=== PATIENT | male | born 1940 | race Caucasian/White ===

== ENCOUNTER 2016-08-11 09:06 | Emergency (ER) | payer MEDICARE ==
--- NOTE | 2016-08-11 09:33 | Emergency Department Record ---
History of Present Illness - General Chief Complaint: Dizziness Stated Complaint: DIZZY Time Seen by Provider: 08/11/16 09:11 Source: Patient Mode of Arrival: Ambulatory Limitations: No limitations - History of Present Illness Initial Comments: 76 yo male woke up at 8:30am. About 15 minutes later he went into his office. He noted he was dizzy and felt weakness in the RUE. He noted that it was different/difficult to close the bedroom door. He felt the arm was mildly tingly as well. No changes in his speech, vision. He felt dizzy and off balance. No weakness or perceived symptoms in his right leg. He feels like the symptoms have resolved at this time. He has a prior stroke in 2011 with left sided symptoms. Upon arrival he also noted a vague discomfort of chest pain as well. PCP [facility] in [place]. About 5 years ago while sitting in a restaurant he developed about 45 minutes of left arm weakness that resolved. He did not seek medical attention then. The symptoms today lasted about 30 minutes. MD Complaint: Dizziness, Other (right sided weakness, altered sensation) Onset/Timin -: Minutes(s) Timing: Sudden onset Description: Difficulty walking, Lightheadedness, Off-balance History of Same: Yes History of Trauma: No Severity: Mild Improves With: Nothing - [place] Coma Scale Eye Response: (4) Open spontaneously Motor Response: (6) Obeys commands Verbal Response: (5) Oriented [place] Total: 15 - Related Data Home Medications Medication Instructions Recorded Confirmed Last Taken Acyclovir 200 mg PO BID 08/11/16 08/11/16 1 Day Ago Aspirin [Aspirin EC] 325 mg PO DAILY 08/11/16 08/11/16 1 Day Ago Carvedilol [Coreg] 12.5 mg PO DAILY 08/11/16 08/11/16 1 Day Ago Ergocalciferol (Vitamin D2) 50,000 unit PO WEEKLY 08/11/16 08/11/16 1 Day Ago [Vitamin D2] Losartan/Hydrochlorothiazide 1 each PO DAILY 08/11/16 08/11/16 1 Day Ago [Hyzaar 100-12.5 Tablet] Meloxicam [Mobic] 7.5 mg PO BID 08/11/16 08/11/16 1 Day Ago Omeprazole [Prilosec] 20 mg PO BID 08/11/16 08/11/16 1 Day Ago Pravastatin Sodium [Pravachol] 40 mg PO DAILY 08/11/16 08/11/16 1 Day Ago Timolol Maleate 0.5% 5Ml Btl 1 drop OP BID 08/11/16 08/11/16 1 Day Ago [Timoptic] Allergies Allergy/AdvReac Type Severity Reaction Status Date / Time No Known Drug Allergies Allergy Verified 08/11/16 09:22 Travel Screening - Travel/Exposure Within Last 30 Days Have you traveled within the last 30 days?: No - Travel/Exposure Within Last Year Have you traveled outside the [place] in the last year?: No - Additonal Travel Details Have you been exposed to anyone with a communicable illness?: No - Travel Symptoms Symptom Screening: None Review of Systems Constitutional: Denies: Chills, Fever, Malaise, Weakness Eyes: Denies: Eye discharge, Eye pain, Photophobia, Vision change ENT: Denies: Congestion, Ear pain, Throat pain Respiratory: Denies: Cough, Dyspnea, Hemoptysis, Stridor, Wheezes Cardiovascular: Reports: Chest pain. Denies: Arrhythmia, Dyspnea on exertion, Edema, Palpitations, Syncope Endocrine: Denies: Fatigue, Polydipsia, Polyuria Gastrointestinal: Denies: Abdominal pain, Diarrhea, Nausea, Vomiting Genitourinary: Denies: Dysuria, Frequency, Hematuria, Urgency Musculoskeletal: Denies: Arthralgia, Back pain, Joint swelling, Myalgia, Neck pain Skin: Denies: Bruising, Change in color, Rash Neurological: Reports: Numbness, Paresthesias, Tingling, Vertigo, Weakness, Other (the patient states the noted positives are resolved currently). Denies: Abnormal gait, Confusion, Headache, Seizure, Tremors Psychiatric: Denies: Anxiety Hematological/Lymphatic: Denies: Blood Clots, Easy bleeding, Easy bruising, Swollen glands Past Medical History - SOCIAL HISTORY Smoking Status: Former smoker Alcohol Use: Occassional Drug Use: None - RESPIRATORY Hx Sleep Apnea: Yes Hx of CPAP: Yes - CARDIOVASCULAR Hx Heart Attack: No Hx Hypertension: Yes - NEURO Hx CVA: Yes (thinks 2011) Hx TIA: Yes Comment:: many mini TIAs with CT scan - GI Hx Reflux: Yes - Hx Renal Disease: Yes (stage II) - ENDOCRINE Hx Diabetes: Yes Hx Thyroid Disease: No - MUSCULOSKELETAL Hx Arthritis: Yes - PSYCH Hx Psych Problems: No - HEMATOLOGY/ONCOLOGY Hx Hematology/Oncology Disorders: No Family Medical History Any Significant Family History?: Yes Physical Exam - General General Appearance: Alert, Oriented x3, Cooperative, No acute distress Limitations: No limitations - Head Head exam: Atraumatic, Normocephalic, Normal inspection - Eye Eye exam: Normal appearance, PERRL. negative: Conjunctival injection, Periorbital swelling, Scleral icterus - ENT ENT exam: Normal exam Ear exam: Normal external inspection Nasal Exam: Normal inspection Mouth exam: Normal external inspection Teeth exam: Normal inspection Throat exam: Normal inspection - Neck Neck exam: Normal inspection, Full ROM. negative: Tenderness - Respiratory Respiratory exam: Normal lung sounds bilaterally. negative: Respiratory distress - Cardiovascular Cardiovascular Exam: Regular rate, Normal rhythm, Normal heart sounds Peripheral Pulses: 2+: Radial (R), Radial (L), Dorsalis Pedis (R), Dorsalis Pedis (L) - GI/Abdominal GI/Abdominal exam: Soft - Rectal Rectal exam: Deferred - exam: Deferred - Extremities Extremities exam: Normal inspection, Full ROM, Normal capillary refill. negative: Pedal edema, Tenderness - Back Back exam: Reports: Normal inspection, Full ROM. Denies: Muscle spasm, Rash noted, Tenderness - Neurological Neurological exam: Alert, CN II-XII intact, Normal gait, Oriented X3, Reflexes normal, Other (No PND, Normal LINDA, Normal FTN, Normal [place]omberg response.). negative: Altered, Motor sensory deficit - Psychiatric Psychiatric exam: Normal affect, Normal mood. negative: Agitated, Anxious - Skin Skin exam: Dry, Intact, Normal color, Warm Stroke Assessment - NIH Stroke Scale 1a. Level of Consciousness: (0) Alert 1b. LOC Questions: (0) Answers Correctly 1c. LOC Commands: (0) Performs Tasks Correctly 2. Best Gaze: (0) Normal 3. Visual: (0) No Visual Loss 4. Facial Palsy: (0) Normal Symmetrical Movement 5a. Motor Arm Left: (0) No Drift 5b. Motor Arm Right: (0) No Drift 6a. Motor Leg Left: (0) No Drift 6b. Motor Leg Right: (0) No Drift 7. Limb Ataxia: (0) Absent 8. Sensory: (0) Normal 9. Best Language: (0) No Aphasia 10. Dysarthria: (0) Normal 11. Extinction/Inattention: (0) No Abnormality NIH Stoke Scale Total: 0 Course Vital Signs 08/11/16 09:08 Temperature 97.9 F Pulse Rate 63 Respiratory 18 Rate Blood Pressure 139/106 Pulse Ox 98 - Reevaluation(s) Reevaluation #1: The patient was seen on arrival His NIH stroke scale is 0 at this time EKG 09:19 NSR, rate 62, pvc's, axis normal, intervals normal, no acute ST changes, no changes from prior on 10/24/12. 08/11/16 09:32 Reevaluation #2: CR 1.3 HCT was read as no acute process. 08/11/16 09:57 Reevaluation #3: I explained the results to the patient. I recommended transfer for further evaluation of the symptoms at a stroke center. He is currently NIH of 0 and no subjective symptoms. He is currently declining transfer or admission. I thoroughly explained that resolved symptoms can be a warning of a stroke to follow. I explained that I can not recommend DC home. He understands the risks and my concerns. I explained the AMA process if he decides to leave. He understands the AMA request if he leaves. 08/11/16 10:07 Reevaluation #4: The patient ambulated throughout the ED and is asymptomatic The Troponin and CK were negative I again offered transfer or further observation, serial enzymes, stroke consult through [facility] He again has declined and will sign out AMA knowing he can call or return to the ER anytime 08/11/16 10:16 Medical Decision Making - Lab Data Result diagrams: 08/11/16 09:21 08/11/16 09:21 Disposition Disposition: Discharge Clinical Impression: Chest pain in adult TIA (transient ischemic attack) Qualifiers: Transient cerebral ischemia type: unspecified Qualified Code(s): G45.9 - Transient cerebral ischemic attack, unspecified Disposition: Against Medical Advice Condition: (2) Stable Instructions: Transient Ischemic Attack (ED), Dizziness (ED), Against Medical Advice (ED) Additional Instructions: Immediately return if you have any return of symptoms or call and ambulance Call your doctor first of the week for close follow up of you ER visit and your symptoms you are signing out AMA but may return any time for assistance or recheck Continue Aspirin 325mg daily Forms: Patient Portal Access Time of Disposition: 10:20
[2016-08-11 09:44] LABS: BASO % 0.7 % (0-6); EOS % 6.9 % (0-6); GRAN % 54.7 % (47-80); HEMOGLOBIN 15.6 gm/dl (14.0-18.0); LYMPH % 27.6 % (16-45); MEAN CELL VOLUME 90.7 fl (81-97); MEAN CORPUSCULAR HEMOGLOBIN 31.5 pg (27-33); MEAN CORPUSCULAR HGB CONC 34.7 g/dl (32-36); MEAN PLATELET VOLUME 11.1 fl (7.4-10.4); MONO % 10.1 % (0-9); PLATELET COUNT 187 K/uL (130-400); RED BLOOD COUNT 4.96 M/uL (4.40-5.70); RED CELL DISTRIBUTION WIDTH 12.9 % (11.5-14.5); WHITE BLOOD COUNT W/O DIFF 5.4 K/uL (4.2-12.2)
[2016-08-11 09:50] LABS: ALB/GLOB RATIO 1.6 (1.1-1.8); ALBUMIN 4.6 gm/dL (3.5-5.0); ANION GAP 13.6 (7-16); BILIRUBIN,TOTAL 0.83 mg/dL (0.2-1.3); CARBON DIOXIDE 26.4 mmol/L (22-30); CREATININE 1.3 mg/dL (0.66-1.25); TOTAL PROTEIN 7.5 gm/dL (6.3-8.2)
[2016-08-11 09:51] LABS: INR 1.01; PARTIAL THROMBOPLASTIN TIME 28.2 SECONDS (24.5-39.1); PROTHROMBIN TIME (PATIENT) 11.4 SECONDS (9.5-12.1)
[2016-08-11 10:02] LABS: CKMB 3.1 ug/L (0-6); TROPONIN I 0.021 ng/mL (0.00-0.034)
[2016-08-11] MEDS ORDERED: ASPIRIN 325 MG TAB ENTERIC-COATED PO ONE (10:10)
--- NOTE | 2016-08-15 08:44 | CT SCAN REPORT ---
EXAM: CT OF THE HEAD WITHOUT CONTRAST HISTORY: DIZZINESS, PARESTHESIAS, DIFFICULTY WITH BALANCE. ACUTE ABNORMALITY. TECHNIQUE: Routine noncontrast CT images of the head were obtained. Comparison: 10/24/12. FINDINGS: There is redemonstration of cerebral and cerebellar atrophy. No hydrocephalus. Mendes white differentiation maintained without evidence for acute ischemia. No intracranial mass or hemorrhage. There is interval improved aeration within the left maxillary sinus. Chronic osseous hypertrophy right maxillary sinus may relate to chronic sinusitis. The mastoid air cells are clear. IMPRESSION: 1. NO ACUTE INTRACRANIAL ABNORMALITY. 2. MODERATE CEREBRAL AND CEREBELLAR ATROPHY ESPECIALLY INVOLVING THE FRONTAL AND TEMPORAL LOBES. 3. SEQUELA OF CHRONIC MICROVASCULAR ISCHEMIA. JOB NUMBER: [id number] [facility]
== END 2016-08-11 10:54 | disposition left against medical advice (07) ==
LOC: ER 09:06
DX: G45.9 Transient cerebral ischemic attack, unspecified (principal); R26.2 Difficulty in walking, not elsewhere classified; R07.9 Chest pain, unspecified; R42 Dizziness and giddiness; E11.9 Type 2 diabetes mellitus without complications; I12.9 Hypertensive chronic kidney disease with stage 1 through stage 4 chronic kidney disease, or unspecified chronic kidney disease; N18.2 Chronic kidney disease, stage 2 (mild); Z86.73 Personal history of transient ischemic attack (TIA), and cerebral infarction without residual deficits; Z87.891 Personal history of nicotine dependence
CPT/HCPCS: 70450; 80053; 82550; 82553; 84484; 85025; 85610; 85730; 93005; 93010; 99284